=== PATIENT | female | born 1940 | race Caucasian/White ===

== ENCOUNTER 2017-05-06 14:40 | Outpatient (CLI) | payer MEDICARE ==
--- NOTE | 2017-05-06 15:56 | XRAY Report ---
TWO-VIEW BILATERAL HANDS: 05/06/2017 CLINICAL INDICATION: Pain. FINDINGS: Frontal and lateral views of the bilateral hands demonstrate osteoarthritic changes of the interphalangeal joints, worst at the distal interphalangeal joint of the right index finger. There is no evidence of fracture or dislocation. No radiopaque foreign body is seen in the soft tissues. IMPRESSION: OSTEOARTHRITIS. JOB #: [id number] EXT JOB #:[id number]
== END 2017-05-06 14:41 | disposition home or self-care (01) ==
LOC: DI 14:40
PROVIDERS: ATTEND Internal Medicine Rheumatology
DX: M19.042 Primary osteoarthritis, left hand (principal); M19.041 Primary osteoarthritis, right hand

== ENCOUNTER 2018-07-28 11:28 | Outpatient (CLI) | payer MEDICARE ==
--- NOTE | 2018-07-29 10:58 | Mammography Report ---
Reason: SCREENING MAMMO Procedure Date: 07/28/2018 Accession Number: [id number] / [id number] Procedure: [facility] - Screening Mammo w/Cristi CPT Code: FULL RESULT: EXAM: Screening Mammo w/Cristi DATE: 07/28/2018 12:19 PM CLINICAL HISTORY: 78-year-old female for screening. TECHNIQUE: Bilateral CC and MLO views were obtained. COMPARISON: 01/10/2015, 01/05/2015, 07/08/2013, 02/07/2012. FINDINGS: The breasts demonstrate scattered fibroglandular densities bilaterally. Intramammary lymph nodes are redemonstrated, typically benign. No suspicious masses, clustered microcalcifications, or regions of architectural distortion are identified. IMPRESSION: Benign findings RECOMMENDATION: Routine annual screening unless otherwise clinically indicated. BIRADS CATEGORY 2: Benign findings STANDARD QUALIFYING STATEMENTS: 1. This examination was not reviewed with the aid of Computer-Aided Detection (CAD). 2. A negative or benign imaging report should not delay biopsy if clinically suspicious findings are present. Consider surgical consultation if warrented. More than 5% of cancers are not identified by imaging. 3. Dense breasts may obscure an underlying neoplasm. 4. This examination was reviewed with the aid of 3D breast imaging (tomosynthesis).
== END 2018-07-28 11:29 | disposition home or self-care (01) ==
LOC: DI 11:28
PROVIDERS: ATTEND Internal Medicine
DX: Z12.31 Encounter for screening mammogram for malignant neoplasm of breast (principal)
CPT/HCPCS: 77063; 77067